=== PATIENT | male | born 1940 | race Caucasian/White ===

== ENCOUNTER 2019-04-06 14:44 | Inpatient (IN) | payer OTHER, MEDICAID | END 2019-04-13 18:40 | disposition still patient (30) | LOC: ER 14:44 → TELE 19:27 → DOU IN ICU 22:57 | PROC: 02703DZ Dilation of Coronary Artery, One Artery with Intraluminal Device, Percutaneous Approach (ICD-10-PCS; principal; ~2019-04-06) | PROC: X2C0361 Extirpation of Matter from Coronary Artery, One Artery using Orbital Atherectomy Technology, Percutaneous Approach, New Technology Group 1 (ICD-10-PCS; ~2019-04-06) | PROC: 4A023N8 Measurement of Cardiac Sampling and Pressure, Bilateral, Percutaneous Approach (ICD-10-PCS; ~2019-04-06) | PROC: 4A033BC Measurement of Arterial Pressure, Coronary, Percutaneous Approach (ICD-10-PCS; ~2019-04-06) | PROC: B2111ZZ Fluoroscopy of Multiple Coronary Arteries using Low Osmolar Contrast (ICD-10-PCS; ~2019-04-06) | PROC: B2151ZZ Fluoroscopy of Left Heart using Low Osmolar Contrast (ICD-10-PCS; ~2019-04-06) | PROC: B246ZZ4 Ultrasonography of Right and Left Heart, Transesophageal (ICD-10-PCS; ~2019-04-06) | DX: I50.1 Left ventricular failure, unspecified (principal); J18.9 Pneumonia, unspecified organism; J90 Pleural effusion, not elsewhere classified; N17.9 Acute kidney failure, unspecified; D68.69 Other thrombophilia; I48.92 Unspecified atrial flutter; I48.91 Unspecified atrial fibrillation; I27.20 Pulmonary hypertension, unspecified; J40 Bronchitis, not specified as acute or chronic; I35.2 Nonrheumatic aortic (valve) stenosis with insufficiency; N18.9 Chronic kidney disease, unspecified; E11.22 Type 2 diabetes mellitus with diabetic chronic kidney disease; Z86.73 Personal history of transient ischemic attack (TIA), and cerebral infarction without residual deficits; J44.9 Chronic obstructive pulmonary disease, unspecified; I12.9 Hypertensive chronic kidney disease with stage 1 through stage 4 chronic kidney disease, or unspecified chronic kidney disease; E78.5 Hyperlipidemia, unspecified; E11.65 Type 2 diabetes mellitus with hyperglycemia; N18.2 Chronic kidney disease, stage 2 (mild) ==